=== PATIENT | female | born 1940 | race Caucasian/White ===

== ENCOUNTER 2017-02-21 12:06 | Inpatient (IN) ==
--- NOTE | 2017-02-20 08:52 | EKG Report ---
Test Performed on : 02/20/2017 08:33:32 AM Test Reason : pat Blood Pressure : / mmHG Vent. Rate : 066 BPM Atrial Rate : 066 BPM P-R Int : 204 ms QRS Dur : 086 ms QT Int : 386 ms P-R-T Axes : 081 091 078 degrees QTc Int : 404 ms Normal sinus rhythm. Rightward axis Borderline ECG When compared with ECG of 18-MAR-2016 06:43, T wave inversion now evident in aVL T wave inversion now evident in V2 Confirmed by Gadiel Boyer DO ([id number]) on 02/23/2017 5:10:57 PM
[2017-02-20 09:45] LABS: HEMATOCRIT 37.3 % (37.0-47.0); HEMOGLOBIN 12.2 g/dL (12.0-16.0); MCH 32.4 PG (27-31); MCHC 32.7 g/dL (33-37); MCV 99.2 FL (81-99); MPV 9.4 FL (7.4-10.4); RBC 3.76 XMIL (4.2-5.4)
[2017-02-20 10:19] LABS: AGAP 13; BUN 8 mg/dL (8-22); CALCIUM 9.1 mg/dL (8.8-10.2); CHLORIDE 97 mmol/L (98-107); COSMO 273; POTASSIUM 4.1 mmol/L (3.5-5.1); SODIUM 138 mmol/L (136-145); TCO2 28 mmol/L (25-35)
[2017-02-21] MEDS ORDERED: PEPCID ONE (12:38)
[2017-02-21] MEDS ORDERED: REGLAN ONE (12:38)
[2017-02-21] MEDS ORDERED: KEFZOL 1 GM/D5W 1 GM/50 ML IVPB ONE (12:38)
[2017-02-21] MEDS ORDERED: LR 1,000 ML ONE ×2 (12:39→12:45)
[2017-02-21] MEDS ORDERED: SODIUM CHLORIDE 0.9% ONE (12:45)
[2017-02-21] MEDS ORDERED: XYLOCAINE 1% ONE (12:45)
[2017-02-21] MEDS ORDERED: MARCAINE 0.25% PF ONE (12:45)
[2017-02-21] MEDS ORDERED: HURRICAINE SPRAY (DOSE) ONE (12:49)
[2017-02-21] MEDS ORDERED: ZEMURON ONE ×2 (13:01→15:20)
[2017-02-21] MEDS ORDERED: QUELICIN (DOSE) ONE (13:01)
[2017-02-21] MEDS ORDERED: ROBINUL ONE (13:01)
[2017-02-21] MEDS ORDERED: XYLOCAINE-MPF 2% ONE (13:01)
[2017-02-21] MEDS ORDERED: ZOFRAN ONE (13:01)
[2017-02-21] MEDS ORDERED: DIPRIVAN 1% ONE (13:02)
[2017-02-21] MEDS ORDERED: FENTANYL ONE (13:02)
[2017-02-21] MEDS ORDERED: EPHEDRINE ONE (13:38)
[2017-02-21] MEDS ORDERED: NEOSTIGMINE ONE (13:40)
--- NOTE | 2017-02-21 15:46 | Diag Imaging Result Doc PS360 ---
OPERATIVE CHOLANGIOGRAM - 02/21/2017 INDICATION: GALLBLADDER DX TECHNIQUE: The exam was performed by the patient's surgeon. Two images were submitted. COMPARISON: CT from 02/13/2017 FINDINGS: Contrast was infused into the cystic duct. The common bile duct is very poorly defined on both the images. The reason is unclear. There was definitely some passage of contrast into the duodenum. IMPRESSION: Nondiagnostic cholangiogram. Electronically signed by Paolo King 02/21/2017 3:44 PM
[2017-02-21] MEDS: MORPHINE ONE ×3 (16:11→16:27)
[2017-02-21] MEDS ORDERED: NS 1,000 ML ONE (16:20)
[2017-02-21] MEDS: PHENERGAN ONE ×2 (16:22→16:32)
[2017-02-21] MEDS ORDERED: MORPHINE ONE (16:41)
[2017-02-21] MEDS ORDERED: PHENERGAN PO PRN (17:47)
[2017-02-21] MEDS ORDERED: REGLAN PO PRN (17:47)
[2017-02-21] MEDS ORDERED: ZOFRAN IV PRN (17:47)
[2017-02-21] MEDS: NS 1,000 ML IV SCH ×2 (18:54→20:43)
[2017-02-21] MEDS: ZOSYN 3.375 GM in NS 50 ML IV SCH ×2 (18:54→23:45)
[2017-02-21] MEDS: NORCO-7.5 PO PRN (20:45)
[2017-02-21] MEDS: SOMA PO SCH (20:45)
[2017-02-21] MEDS: TRANXENE PO SCH (20:45)
--- NOTE | 2017-02-22 04:23 | OPERATIVE NOTE ---
PROCEDURE DATE: 02/21/2017 PREOPERATIVE DIAGNOSIS: Chronic cholecystitis. POSTOPERATIVE DIAGNOSES: 1. Chronic cholecystitis. 2. Probable cholangitis. PROCEDURE: Laparoscopic cholecystectomy with attempted cholangiogram. SURGEON: Hansel Pinto MD ANESTHESIA: General. ESTIMATED BLOOD LOSS: 50 mL. COMPLICATIONS: None apparent. SPECIMENS: Gallbladder. FINDINGS: The liver was somewhat nodular in appearance. The gallbladder had a chronically inflamed appearance along its dome and midportion of the body, closer to the infundibulum and triangle of Calot, there was more acute-appearing inflammation. The cystic duct was dilated. Purulent fluid that was seen in the cystic duct and coming out of the gallbladder. TECHNIQUE: She was brought to the operating room and placed supine on the table. General anesthesia was induced. She was prepped and draped in a sterile fashion. Then, 0.25% Marcaine with epinephrine was used to anesthetize our incisions. An 11 mm incision was made above the umbilicus. The fascia was exposed. Entry into the peritoneal cavity was obtained under direct vision with the Optiview device. Pneumoperitoneum was established. The camera was inserted. There was no evidence of injury to underlying structures. Three 5 mm incision and ports were placed along the epigastric and right upper quadrant below the costal margin per usual routine. The dome of the gallbladder was grasped by the ob gyn physician assistant with a bulldog clamp and lifted up superiorly. There were adhesions of the duodenum up on the infundibulum of the gallbladder. This was taken down carefully with blunt dissection using a Kittner and with scissors to incise the adhesions. There was a dilated common bile duct identified. There was quite a bit of moderately intense inflammatory rind over the triangle of Calot. The gallbladder wall was quite thickened. Working carefully to incise the peritoneum over the triangle with hook cautery and then bluntly dissected out the triangle of Calot mostly with the Kittner dissection, I eventually was able to identify the critical view. The gallbladder liver junction was seen and there were only 2 structures entering the gallbladder, the cystic duct and cystic artery. The artery was clipped proximally and distally and incised between scissors. I should point out that to get good exposure, I did incise the peritoneum along the wall of the gallbladder up higher in the liver bed, or I should say more distally along the liver edge. I encountered a few bleeding vessels entering the gallbladder which were clipped to control. This was well away from the triangle of Calot. I placed a clip on the gallbladder side and made a ductotomy proximal to this. The 14- gauge Angiocath was passed through the right upper quadrant. The Taut cholangiogram catheter was passed through this into the cystic duct. It was held in place with a locking grasper. I attempted to perform the cholangiogram, however, the angiograph using the catheter would not stay in the cystic duct and we could not get any contrast to flow through the biliary tree. I removed the Angiocath and Taut catheter. I divided the rest of the cystic duct with scissors. The remaining cystic duct was dilated and was too large for a clip. I placed 2 PDS the Endoloops on the cystic duct stump. The gallbladder was then taken off the liver bed using hook cautery, obtaining hemostasis along the way. The gallbladder was placed in an EndoCatch bag. I then irrigated copiously with saline and suctioned out the old blood and irrigant. There were no signs of any bleeding or bile leakage at this time. I did bring in a 19 Andrew drain and placed it up under the liver bed adjacent to our cystic duct stump and brought out through the right lateral port site. It was anchored to the skin with 2-0 nylon. The remaining ports were removed and the abdomen was desufflated. The gallbladder was brought out through the umbilical port site. The umbilical fascia was closed with a running 0 Vicryl. The skin was closed with skin clips. There were no apparent complications. She was awakened in stable condition and transferred to the recovery room. cc: Hansel Pinto MD
[2017-02-22] MEDS: ZOSYN 3.375 GM in NS 50 ML IV SCH ×3 (05:43→17:30)
[2017-02-22 06:58] LABS: MANUAL DIFF NEEDED? NO
[2017-02-22 07:01] LABS: BASO% 0.7 % (0.0-0.8); EOS# 0.17 X1000 (0.0-0.7); EOS% 2.4 % (0.0-10.0); HEMATOCRIT 26.2 % (37.0-47.0); HEMOGLOBIN 8.4 g/dL (12.0-16.0); LYMPH# 0.98 X1000 (1.2-3.4); LYMPH% 14.1 % (20.5-51.1); MCH 31.9 PG (27-31); MCHC 32.1 g/dL (33-37); MCV 99.6 FL (81-99); MONO# 0.97 X1000 (0.11-0.59); MPV 8.9 FL (7.4-10.4); NEUT% 68.8 % (42.2-75.2); PLT 323 X1000 (130-400); RBC 2.63 XMIL (4.2-5.4)
[2017-02-22 07:28] LABS: AGAP 10; ALBUMIN 2.7 g/dL (3.5-5.0); ALKALINE PHOSPHATASE 306 U/L (32-104); BUN 8 mg/dL (8-22); CALCIUM 8.1 mg/dL (8.8-10.2); CHLORIDE 100 mmol/L (98-107); COSMO 278; GOT 23 U/L (10-30); GPT 34 U/L (10-36); POTASSIUM 4.1 mmol/L (3.5-5.1); SODIUM 140 mmol/L (136-145); TCO2 30 mmol/L (25-35); TOTAL BILIRUBIN 0.34 mg/dL (0.20-1.00); TOTAL PROTEIN 4.8 g/dL (6.3-8.3)
[2017-02-22] MEDS: NS 1,000 ML IV SCH ×2 (07:35→21:35)
[2017-02-22] MEDS: NORCO-7.5 PO PRN (09:20)
[2017-02-22] MEDS: HYDROCHLOROTHIAZIDE PO SCH (09:20)
[2017-02-22] MEDS: PERIDEX MT SCH ×2 (09:21→21:35)
[2017-02-22] MEDS: SOMA PO SCH ×2 (09:29→21:35)
[2017-02-22] MEDS: TRANXENE PO SCH ×2 (09:29→21:35)
[2017-02-22 10:55] LABS: HEMATOCRIT 27.2 % (37.0-47.0); HEMOGLOBIN 8.8 g/dL (12.0-16.0)
[2017-02-22 15:55] LABS: HEMOGLOBIN 9.7 g/dL (12.0-16.0)
[2017-02-22] MEDS: PROTONIX IV SCH (16:59)
--- NOTE | 2017-02-22 18:18 | PROGRESS NOTE ---
DATE: 02/22/2017 SUBJECTIVE: The patient complains of some pain along her right side where the drain is and where the incisions are. However, she is eating without vomiting. She is voiding. She is also having some bloody drainage through the SARAH drain and around it. OBJECTIVE: Vital Signs: Temperature is 97.9, pulse 73, respirations 18, blood pressure 148/56, O2 saturation 98%. General: Thin, elderly female in no acute distress. CV: Regular rate and rhythm. Respiratory: No work of breathing. Gastrointestinal: Soft, nondistended. Appropriately tender. Incisions clean, dry, and intact. There is some moderate bloody drainage around her SARAH drain. The drainage amount appears to be under 200 mL, since it was inserted yesterday. LABORATORY: White blood cell count 6.9, hemoglobin this morning 8.4, hematocrit 26.2. Subsequent checks are 8.8 and 27.2, 9.7 and 30. Chemistry panel was notable for alkaline phosphatase of 306, total bilirubin is normal. AST and ALT are normal. ASSESSMENT AND PLAN: A 76-year-old female, status post laparoscopic cholecystectomy with apparent subclinical cholangitis. We are treating her for the cholangitis with Zosyn. Dr. Marin is aware of her admission and is following her and there is consideration for ERCP to better drain the bile duct. Admittedly, it is unusual that she does not have fever, chills or elevated LFTs, or elevated white count. I will leave the ERCP decision up to doctor. She did, however, have a purulent fluid emanating out of her cystic duct and gallbladder. We are going to continue watching her blood count overnight. I think this has stabilized. cc: Hansel Pinto MD
--- NOTE | 2017-02-22 20:42 | CONSULTATION ---
DATE OF CONSULTATION: 02/22/2017 ATTENDING PHYSICIAN: Dr. Pinto PRIMARY CARE DOCTOR: Dr. Bundy REASON FOR CONSULTATION: Cholangitis. HISTORY OF PRESENT ILLNESS: Ms. Dotson is a 76-year-old female who was admitted yesterday after cholecystectomy. During the cholecystectomy, there was evidence of pus in the gallbladder. Unfortunately, intraoperative cholangiogram was unsuccessful. The patient has elevated liver enzymes, and there was a question of cholangitis. The patient has been put on IV antibiotics. The gastroenterology team was consulted for ERCP to evaluate for any kind of retained common bile duct stones contributing to cholangitis. The patient has been put on a diet today, which she kept down well. She still has some postoperative ileus. She is sore in the abdomen from recent surgery. She has not passed any flatus yet. PAST MEDICAL HISTORY: Hypertension, chronic back pain, degenerative disk disease, left chest mass, COPD. 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 She is being managed by Dr. Sunshine. SOCIAL HISTORY: Smoked 1 pack per day for 30 years. Quit in May 2015. Denies history of alcohol or illicit drug abuse. Her family is present at bedside. PAST FAMILY HISTORY: Father had cancer of unknown type. ALLERGIES: No known drug allergies. MEDICATIONS: In the hospital included Soma, chlorhexidine, clorazepate 75 mg p.o. b.i.d., hydrochlorothiazide 12.5 mg p.o. daily, Hydrocodone/acetaminophen 7.5 mg 1 tab p.o. q.4 hours as needed, Reglan 10 mg p.o. t.i.d. as needed, IV normal saline at 75 mL per hour, Zofran 4 mg IV every 4 hours as needed, Protonix 40 mg IV once daily, Phenergan 20 mg p.o. q.6 hours as needed, Zosyn 3.375 g IV q.6 hours. DIET: She is on a GI soft diet. REVIEW OF SYSTEMS: Denies any current fevers, rigors, chills, chest pain, shortness of breath, dyspnea at rest. Denies any genitourinary complaints. She does have history of chronic back pain and history of lung cancer. She has also a known history of COPD. She denies any nausea, vomiting, or vomiting blood. She denies moving her bowels since the surgery. PHYSICAL EXAMINATION: Vital signs: Temperature 98.1 degrees, pulse of 71, respiratory rate 18, blood pressure 124/50, saturating 97% on room air. Body weight of 90 pounds, BMI of 17.0. General appearance: The patient is thinly built, lying in bed, in no acute distress. HEENT: Mild pallor. No icterus. Pupils equal, react to light. Neck: Supple. Chest : Decreased air entry. Cardiac: Regular rhythm. No murmur. Abdomen: She is sore from the surgery. There are surgical dressings noted over the abdomen. There is a drain in the right upper quadrant draining serosanguineous fluid. Bowel sounds are hypoactive. Extremities: No cyanosis , clubbing, and edema. Neurologic: She is alert, awake, oriented. LABORATORIES: Hemoglobin and hematocrit are 9.7 and 30, white count 6.95, platelet count of 323,000. Sodium 140, potassium 4.1, chloride 100, bicarb 39/10, BUN of 8, creatinine 0.4, glucose of 95, calcium 8.1, total bilirubin is 0.34, AST 23, ALT 34, alkaline phosphatase 306, total protein 4.8, albumin of 2.7. diagnosis on recent cholecystectomy showed chronic cholecystitis and probable cholangitis. There is evidence of purulent fluid seen in the cystic duct coming out of the gallbladder. IMAGING: CT scan of the abdomen done on 02/13/2017 showed diffuse enhancement of the extrahepatic biliary collecting ducts, as well as the gallbladder, concerning for cholangitis and/or cholecystitis. Stable indeterminate architectural distortion of the anterior surface of the liver, but it is stable since 03/10/2016. Common bile duct measuring 1 cm. The operative cholangiogram study was nondiagnostic. IMPRESSION AND PLAN: 1. Chronic cholecystitis and probable cholangitis, and mildly elevated alkaline phosphatase and dilated common bile duct may be related to questionable common bile duct stricture, which may have contributed to mildly elevated alkaline phosphatase. 2. Status cholecystectomy on 02/19/2017. 3. Anemia. RECOMMENDATIONS: The patient will be continued IV antibiotics and IV fluids Dr. Marin has started her on a soft diet. Will follow up on labs tomorrow morning. Will likely schedule for ERCP on Monday, based on the lab data. She will continue on GI prophylaxis and antiemetics and IV pain control. Further recommendations to follow, pending hospital course. I discussed plan with the patient and family. cc: MD Hansel David MD MTDD
[2017-02-22 22:27] LABS: HEMATOCRIT 25.5 % (37.0-47.0); HEMOGLOBIN 8.1 g/dL (12.0-16.0)
[2017-02-23] MEDS: ZOSYN 3.375 GM in NS 50 ML IV SCH ×4 (00:11→18:29)
[2017-02-23] MEDS: SOMA PO SCH ×3 (02:36→22:06)
[2017-02-23] MEDS: TRANXENE PO SCH ×3 (02:36→22:05)
[2017-02-23] MEDS: NORCO-7.5 PO PRN ×5 (04:49→22:06)
[2017-02-23 07:12] LABS: MANUAL DIFF NEEDED? NO
[2017-02-23 07:16] LABS: EOS# 0.51 X1000 (0.0-0.7); HEMATOCRIT 26.8 % (37.0-47.0); HEMOGLOBIN 8.6 g/dL (12.0-16.0); IMM GRAN# 0.02 X1000 (0.0-0.04); IMM GRAN% 0.3 % (0.0-0.5); LYMPH# 0.58 X1000 (1.2-3.4); MCH 32.1 PG (27-31); MCHC 32.1 g/dL (33-37); MONO# 0.61 X1000 (0.11-0.59); MONO% 8.4 % (1.7-9.3); MPV 9.2 FL (7.4-10.4); NEUT% 75.3 % (42.2-75.2); PLT 309 X1000 (130-400); RBC 2.68 XMIL (4.2-5.4)
[2017-02-23 07:46] LABS: AGAP 9; ALBUMIN 2.9 g/dL (3.5-5.0); ALKALINE PHOSPHATASE 283 U/L (32-104); BUN 4 mg/dL (8-22); CALCIUM 8.2 mg/dL (8.8-10.2); CHLORIDE 104 mmol/L (98-107); COSMO 283; GOT 18 U/L (10-30); GPT 27 U/L (10-36); POTASSIUM 3.3 mmol/L (3.5-5.1); SODIUM 144 mmol/L (136-145); TCO2 31 mmol/L (25-35); TOTAL BILIRUBIN 0.34 mg/dL (0.20-1.00); TOTAL PROTEIN 5.4 g/dL (6.3-8.3)
--- NOTE | 2017-02-23 08:45 | PROGRESS NOTE ---
DATE: 02/23/2017 SUBJECTIVE: The patient feels a little sore on her right side. She has had no nausea or vomiting. She is eating regular food. She is also voiding. OBJECTIVE: Vital Signs: She is afebrile. Vital signs are stable. SARAH drain with 60 mL drained out last night; it is mostly bloody in appearance. General: She is alert and oriented x4. No acute distress. CV: Regular rate and rhythm. Respiratory: No work of breathing. Gastrointestinal: Soft, nondistended. Appropriately tender. Incision is clean, dry, and intact. There is no bruise or hematoma around the drain. LABORATORY: White blood cell count 7, hemoglobin. 8.6, hematocrit 26.8, platelet count 309. Sodium 144, potassium 3.3, chloride 104, CO2 31, BUN 4, creatinine 0.5, glucose 79, alkaline phosphatase 283, total bilirubin 0.3. AST and ALT 18 and 27 respectively. ASSESSMENT AND PLAN: A 76-year-old female status post laparoscopic cholecystectomy. She did have some acute blood loss anemia. I think she had some degree of postoperative bleeding or oozing from the liver capsule in the gallbladder fossa. This appears to have slowed down and is unlikely to require a blood transfusion. We will continue to monitor this. She also had pus in the biliary tree, and preoperative workup concerning for cholangitis. Interestingly, she is afebrile and her white count is normal. We will continue her antibiotics for now and await Dr. Marin's decision regarding endoscopic retrograde cholangiopancreatography, which could confirm and treat any distal biliary obstruction and cholangitis. cc: Hansel Pinto MD
[2017-02-23] MEDS: PERIDEX MT SCH ×2 (08:50→22:06)
[2017-02-23] MEDS: HYDROCHLOROTHIAZIDE PO SCH (08:50)
[2017-02-23 12:31] LABS: HEMATOCRIT 27.8 % (37.0-47.0)
[2017-02-23] MEDS: SODIUM CHLORIDE 0.9% INJ SCH (15:57)
[2017-02-23] MEDS: PROTONIX IV SCH (15:57)
--- NOTE | 2017-02-23 17:54 | PROGRESS NOTE ---
DATE: 02/23/2017 SUBJECTIVE: The patient is currently resting in bed. Her family is present at the bedside. She denies any drainage. Denies any nausea. She has some flatus. She has not had a bowel movement today. She is tolerating her diet well. OBJECTIVE: Vital signs: Temperature 98.4 degrees, pulse rate of 66, respiratory rate 20, blood pressure 105/55, saturating 92% on room air. General Appearance: Thinly built, lying in bed, in no acute distress. HEENT: Mild pallor. No icterus. Neck: Supple. Abdomen: Right upper quadrant drain noted. Slightly sore and mildly protuberant after the surgery. Bowel sounds are present. Hypoactive. Extremities: No cyanosis, clubbing, edema. Neurologic: Alert, awake, oriented. LABORATORY: Hemoglobin and hematocrit 9 and 27.8, white count 7.24, platelet count of 309,000. Sodium 140, potassium 3.3, chloride 104, bicarb of 31, anion gap 9, BUN of 4, creatinine 0.5, glucose of 79, calcium is 8.2, total bilirubin is 0.34, AST 18, ALT 27, alkaline phosphatase is 283. Protein 5.4, albumin of 2.9. IMPRESSION/PLAN: 1. Acute cholecystitis and question of cholangitis. We will continue her on intravenous antibiotics, intravenous fluids. She is already scheduled for ERCP tomorrow with Dr. Marin to evaluate for any kind of biliary obstruction or cholangitis. 2. Gastrointestinal prophylaxis, proton pump inhibitor. 3. Anemia. We will continue to watch. Likely postsurgical. We will transfuse as needed. 4. Chronic obstructive pulmonary disease, per the primary care team. 5. Nausea, continue on intravenous antiemetics as needed. 6. We will start her on Dulcolax once daily at bedtime. 7. Further recommendations pending hospital course. cc: MD Hansel Aponte MD Gregory S. Cheatham, MD
[2017-02-23] MEDS: DULCOLAX PR SCH (22:05)
[2017-02-24] MEDS: ZOSYN 3.375 GM in NS 50 ML IV SCH ×3 (01:32→18:49)
[2017-02-24] MEDS: NORCO-7.5 PO PRN ×3 (02:32→21:05)
[2017-02-24] MEDS: SOMA PO SCH ×2 (09:09→21:05)
[2017-02-24] MEDS: HYDROCHLOROTHIAZIDE PO SCH (09:09)
[2017-02-24] MEDS: TRANXENE PO SCH ×2 (09:17→21:05)
[2017-02-24] MEDS: PERIDEX MT SCH ×2 (09:19→22:42)
[2017-02-24] MEDS ORDERED: DIPRIVAN 1% ONE ×2 (10:43→11:30)
--- NOTE | 2017-02-24 14:12 | OPERATIVE NOTE ---
PROCEDURE DATE : 02/24/2017 SURGEON: Gregory Marin MD. PROCEDURE: 1. Endoscopic retrograde cholangiopancreatography. 2. Papillotomy. PREOPERATIVE DIAGNOSIS: Rule out cholangitis. POSTOPERATIVE DIAGNOSES: 1. Normal pancreatogram. 2. Large juxta-ampullary diverticulum 3. Unable to cannulate the bile ducts secondary to distortion of the anatomy from a juxta- ampullary diverticulum. DESCRIPTION OF PROCEDURE: After informed consent, adequate intravenous sedation, the scope was introduced into the esophagus, stomach, and duodenum. There is a large juxta-ampullary diverticulum with a bezoar. This was cleaned. At this point, pancreatogram was obtained which was normal. Several attempts to do cholangiogram were unsuccessful, and the cannula was entering the pancreatic duct. In fear of causing any pancreatitis, I used a needle-knife and opened up the papilla and did a simple papillotomy. There is free flow of bile. The scope is withdrawn. The patient tolerated the procedure well without any major complication. RECOMMENDATION: Continue antibiotics for at least 10 days. The patient can be discharged if she is asymptomatic by tomorrow. cc: MD Hansel Orozco MD
[2017-02-24] MEDS: PROTONIX IV SCH (18:49)
[2017-02-24] MEDS: SODIUM CHLORIDE 0.9% INJ SCH (18:49)
[2017-02-24] MEDS: DULCOLAX PR SCH (22:42)
[2017-02-25] MEDS: ZOSYN 3.375 GM in NS 50 ML IV SCH (02:59)
[2017-02-25 07:27] VITALS: BP 110/50
== END 2017-02-25 09:20 | disposition home or self-care (01) ==
LOC: OR 12:06 → 3N 12:06
PROVIDERS: ADMIT Surgery; ATTEND Surgery